=== PATIENT | male | born 2000 | race Caucasian/White ===

== ENCOUNTER 2019-03-10 14:54 | Emergency (ER) | payer OTHER ==
[~2019-03-10] VITALS: Ht 188 cm; Wt 85.6 kg
[2019-03-10 14:59] VITALS: BP 151/72
[2019-03-10] MEDS ORDERED: LIDOCAINE-MPF 1%, 5ML ONE (15:16)
[2019-03-10] MEDS ORDERED: BUPIVACAINE/PF 0.5% ONE (15:17)
[2019-03-10] MEDS ORDERED: BUPIVACAINE 0.25% INFIL ONE (15:30)
[2019-03-10] MEDS ORDERED: LIDOCAINE-MPF 1%, 5ML INFIL ONE (15:30)
[2019-03-10] MEDS ORDERED: PLEASE ENTER ALLERGIES MC SCH (16:00)
--- NOTE | 2019-03-10 16:00 | NUR ---
WOUND IRRIGATED W/ 500ML OF STERILE NS
[2019-03-10] MEDS ORDERED: NEOSPORIN OINT. PKT 1 PACKET ONE ×2 (16:05→16:50)
[2019-03-10] MEDS ORDERED: CEPHALEXIN 500 MG CAPSULE PO ONE (17:00)
[2019-03-10] MEDS ORDERED: CEPHALEXIN 500 MG CAPSULE ONE (17:02)
== END 2019-03-10 17:36 | disposition home or self-care (01) ==
LOC: ED 17:32
DX: S61.211A Laceration without foreign body of left index finger without damage to nail, initial encounter (principal); X58.XXXA Exposure to other specified factors, initial encounter; Y93.89 Activity, other specified; Y92.009 Unspecified place in unspecified non-institutional (private) residence as the place of occurrence of the external cause; Y99.8 Other external cause status
CPT/HCPCS: 13132; 99285; J3490